=== PATIENT | female | born 1955 | race Caucasian/White ===

== ENCOUNTER 2018-04-14 11:05 | Emergency (ER) | payer BC, SELFPAY ==
--- NOTE | 2018-04-14 11:05 | DT_ITS ---
This patient was seen during an EMR downtime April 08, 2018 - April 15, 2018. This patient may have a combination of paper and electronic documentation or all paper documentation. All documentation is viewable within the e-chart portion of [facility] for each patient visit.
--- NOTE | 2018-04-14 12:40 | EKG12_ITS ---
Test Reason : CP Blood Pressure : / mmHG Vent. Rate : 065 BPM Atrial Rate : 065 BPM P-R Int : 156 ms QRS Dur : 094 ms QT Int : 440 ms P-R-T Axes : 000 046 074 degrees QTc Int : 457 ms Normal sinus rhythm Nonspecific ST abnormality Abnormal ECG Confirmed by RAFAEL POWERS, JESSICA ([id number]), editor greeting card MORRO MAY ([id number]) on 04/17/2018 5:44:08 PM Referred By: Jose Teixeira Confirmed By:JESSICA HALL MD
--- NOTE | 2018-04-14 14:05 | CT_ITS ---
STUDY: CT CERVICAL SPINE WITHOUT CONTRAST REASON FOR EXAM: Female, 62 years old. Dizziness and vomiting. Trauma to the back of the head RADIATION DOSAGE (If Supplied By Facility): CTDIvol = ( 18.32 ) mGy, DLP = ( 396.97 ) mGycm TECHNIQUE: High resolution transaxial imaging was performed without contrast material. Sagittal and coronal images were reconstructed. Individualized dose optimization techniques were used for this CT. COMPARISON: None FINDINGS: Straightening of normal cervical lordosis. Craniocervical junction appears unremarkable. Disc space narrowing with endplate degenerative changes at C5-C6 and C6-C7 levels. Anterior and posterior osteophytic spurring. Degenerative disc disease at C5-C6 and C6-C7 levels with bilateral neural foraminal narrowing and likely mild central canal stenosis. No prevertebral soft tissue swelling or mass. Multilevel facet arthrosis. The facets however appear aligned. The dens appears intact. The occipital condyles are within normal limits. Uncovertebral joint degenerative changes. Heterogeneous appearance of the thyroid gland. No apical pneumothorax. IMPRESSION: No definite evidence for acute cervical spine fractures. Cervical spondylotic changes predominating at C5-C6 and C6-C7 levels. Electronically Signed: Napoleon Zapien, at 15:16 EDT Tel , Service support , CT/Spine Cervical without Contras
--- NOTE | 2018-04-14 14:05 | CT_ITS ---
STUDY: CT BRAIN WITHOUT CONTRAST REASON FOR EXAM: Female, 62 years old. Dizziness and vomiting. Trauma to the back of the head RADIATION DOSAGE (If Supplied By Facility): CTDIvol = ( 44.99 ) mGy, DLP = ( 728.62 ) mGycm TECHNIQUE: Transaxial CT imaging of the brain was performed without administration of intravenous contrast material. Individualized dose optimization techniques were used for this CT. COMPARISON: None. FINDINGS: No evidence for shift of midline structures, mass effect or compression of the ventricles noted. No acute intra-articular extra-axial hemorrhage is seen. No abnormal intracranial fluid collections identified. The basal cisterns are patent. Posterior fossa structures demonstrate no discrete mass. Low-attenuation area in the periventricular region of the left frontal horn noted likely related with chronic small vessel disease. There is likely a chronic infarct of the body of the left caudate nucleus. Mucoperiosteal thickening of the maxillary sinuses as well as the ethmoid vessels. Somewhat ectatic appearance of the basilar tip noted. IMPRESSION: No evidence for acute intracranial hemorrhage, mass effect or acute large territory infarcts. Chronic left basal ganglia lacunar infarct. Electronically Signed: Napoleon Zapien, at 15:11 EDT Tel , Service support , CT/Brain/Head without Contrast
--- NOTE | 2018-04-14 14:30 | RAD_ITS ---
STUDY: X-RAY CHEST REASON FOR EXAM: Female, 62 years old. Dizziness and chest pain TECHNIQUE: PA and lateral views of the chest. COMPARISON: None. FINDINGS: The lungs are clear and expanded. There is no demonstrated pleural abnormality. Normal size heart. Normal mediastinum and celeste. Normal visualized pulmonary arteries. Normal visualized aortic arch and descending thoracic aorta. Normal visualized thoracic spine. Normal visualized ribs, clavicles, and shoulders. There is no demonstrated abnormality of the visualized soft tissue structures of the upper abdomen. RAD/Chest PA and Lateral IMPRESSION: Normal x-ray examination of the chest. Electronically Signed: Fidel Olsen DO at 14:55 EDT Tel , Service support ,
[2018-04-16 08:50] LABS: AST(SGOT) 18 U/L (15-37); Alanine Aminotransfer ALT/SGPT 15 U/L (13-56); Albumin, Serum 3.6 g/dL (3.2-5.0); Alkaline Phosphatase 80 U/L (45-117); Anion Gap 11 (5-15); BUN 11 mg/dL (7-18); BUN/Creat Ratio 14.5 RATIO (10-20); Calcium,Total 9.4 mg/dL (8.5-10.1); Chloride 90 mmol/L (98-107); Creatinine, Serum 0.76 mg/dL (0.55-1.02); EST Glomerular Filtration Rate 82 mL/min (>60); Est Glom Filt Rate - Afr Amer 99 mL/min (>60); Globulin 3.7 g/dL (2.2-4.2); Glucose 113 mg/dL (74-106); Lipase 152 U/L (73-393); Potassium 3.5 mmol/L (3.5-5.1); Protein, Total 7.3 g/dL (6.4-8.2); Sodium Level 129 mmol/L (136-145)
[2018-04-16 11:29] LABS: Absolute Lymphocyte Count 0.75 X10^3/ul (0.83-4.51); Basophil% 0.2 % (0-1); Eosinophils% 0.4 % (0-5); Hematocrit 39.7 % (37-47); Hemoglobin 14.1 g/dl (12.0-15.0); Lymphocyte # 0.75 X10^3/ul (4.0); Lymphocyte % 14.4 % (19-41); Mean Corp Hgb Conc 35.5 g/gl (32-36); Mean Corpuscular Hgb 29.1 pg (27.0-32.0); Neutrophil # 3.96 X10^3/uL (2.7-7.7); Neutrophil % 75.8 % (47-70); POSITIVE COUNT NO; POSITIVE DIFFERENTIAL NO; POSITIVE MORPHOLOGY NO; Platelet Count 185 K/mm3 (150-450); RBC Distribution Width CV 11.8 % (11.6-14.6); RBC Distribution Width SD 35.4 fl (35.1-43.9); Red Blood Count 4.84 M/mm3 (4.2-5.4); White Blood Count 5.2 K/mm3 (4.4-11.0)
[2018-04-16 11:30] LABS: Basophil# 0.01 X10^3/uL; Eosinophil# 0.02 X10^3/uL; Monocyte# 0.47 X10^3/uL
[2018-04-16 12:07] LABS: Mucous, Urine 0 SEEN /hpf (<or=2+); Red Blood Cells-Urine 0 SEEN /hpf (0-5); Squamous Epithelial Cells - UA 0 SEEN /hpf (5-10); White Blood Cells 0 SEEN /hpf (0-5)
[2018-04-16 13:16] LABS: Amorphous Sediment 1+; Bacteria RARE /hpf (None Seen); Color, Urine Yellow (Yellow); Glucose, Dipstick NEGATIVE (Normal); Ketone-Dipstick Negative (Negative); Leukocyte Esterase-Dipstick Negative /ul (Negative); Nitrite-Dipstick Negative (Negative); Occult Blood-Urine Negative /ul (Negative); Protein-Dipstick Negative (Negative); Specific Gravity, Urine 1.015 (1.002-1.030); Urine Bilirubin Dipstick Negative (Negative); Urine Clarity Sl Cldy (Clear); Urine Urobilinogen Normal (Normal)
== END 2018-04-14 14:30 | disposition home or self-care (01) ==
LOC: ED 22:20
PROVIDERS: Emergency Provider Emergency Medicine; Family Provider Student in an Organized Health Care Education/Training Program; PCP Student in an Organized Health Care Education/Training Program
DX: F07.81 Postconcussional syndrome (principal); F32.9 Major depressive disorder, single episode, unspecified; F41.9 Anxiety disorder, unspecified; I10 Essential (primary) hypertension; E78.00 Pure hypercholesterolemia, unspecified; Z79.899 Other long term (current) drug therapy; Z78.0 Asymptomatic menopausal state; Z87.891 Personal history of nicotine dependence
CPT/HCPCS: 36415; 70450; 71046; 72125; 80053; 81001; 83690; 85025; 93005; 99284; A4216

== ENCOUNTER 2018-05-03 13:00 | Outpatient (RCR) | payer BC, SELFPAY ==
--- NOTE | 2018-04-23 13:54 | HP.PTEVAL_ITS ---
Patient's Visit Information KATE BERGERON is a 62 year old F referred to Physical Therapy by Yenny Martines NP with a diagnosis of dizziness. Date of Evaluation: 04/23/18 Physical Therapist: Hortencia Pérez - Visit Plan Frequency: 1-2x /Week Duration: 3 Weeks Plan: 1-2X/ week as needed to re-check L Hallpike for positional vertigo and reposition if need be. Check balance and VOR if feeling of unsteadiness continues with HEP - Subjective Subjective: Pt has been having dizziness starting 4 weeks ago. She fell from standing on a shlef to get Diet Pepsiand then 2 weeks later she started with dizziness and nausea and throwing up. Went to ER and said vertigo and then saw Dr for follow up with high BP and changed meds. She then went to the ER again for anxiety and got valium. She feels week and unsteady. Last night when she rolled over she would get dizzy for less than 1 min (she is not sure but thinks she rolled to the R). The room did spin when that happened and that also occurs when bend fw or move quick. She in general feels off but the room spins and is less than 1 min when it happens. She finally saw her Dr and they sent her to PT. They did a Cat Scan in the hospital and she had echoand cardiogram done and they were all ok. She has ringing in her ears but has had that for a long time. - Objective -R Hallpike for nystagmus or dizziness to the R. + L Hallpike for nystagmus and dizziness that lasted approx 20 seconds...performed L Eply without any problems. Retested and + L Hallpike for about 8 seconds of nystagmus and dizziness and then performed L Eply again. Re-test L Hallpike again (3rd time) and was positiove for torsional nystagmus for less than 5 seconds and re did the L Eply again. Negative L Hallpike. Pt felt a little weird walking out but explained to just avoid looking down for the rest of the day and call with any questions - Goals Goal 1:: Abolish room spinning dizziness Goal Time Frame: 1 Week Goal 2:: Test VOR or balance if needed Goal Time Frame: 2-4 Weeks Goal 3:: I HEP if needed Goal Time Frame: 2-4 Weeks - Rehabilitation Potential Rehabilitation Potential: Good - Anticipated Interventions Patient/Client Instruction: Educate patient on: Condition, Plan of Care For the Purpose of:: To improve ability of physical actions for home/community/ work/leisure, To improve gait and locomotor functions, To improve balance Manual Therapy Techniques to Include: Other Comment: Eply For the Purpose of:: To decrease level of supervision to perform tasks, To improve gait and locomotor functions, To improve balance Thank you for the opportunity to evaluate your patient. For Medicare and Medicare HMO plans, please review the plan of care and approve it. It will need to be FAXED BACK to us at [phone] for Medicare purposes. Please let me know if there are questions or concerns regarding this plan of care. Physician Signature: Date:
--- NOTE | 2018-07-17 17:17 | HP.PTDCNRP_ITS ---
HP - Discharge Summary (1) - Patient Information KATE BERGERON was seen in my office for initial evaluation on 04/23/18. The following Plan of Care was established for this patient: Initial Frequency: 1-2x /Week Initial Duration: 3 Weeks - Anticipated Interventions Patient/Client Instruction: Educate patient on: Condition, Plan of Care For the Purpose of:: To improve ability of physical actions for home/community/ work/leisure, To improve gait and locomotor functions, To improve balance Manual Therapy Techniques to Include: Other Comment: Eply For the Purpose of:: To decrease level of supervision to perform tasks, To improve gait and locomotor functions, To improve balance This patient was last seen in our office 05/03/18. Pertinent comments regarding their Physical therapy will appear below: DC PT. Pt did not reschedule At this point I will be discontinuing this patient from physical therapy. I would be happy to see this patient again in the future if found appropriate by the physician. Thank you! Hortencia Pérez
== END 2018-05-03 19:00 | disposition home or self-care (01) ==
LOC: PT 13:00
PROVIDERS: Family Provider Student in an Organized Health Care Education/Training Program; PCP Student in an Organized Health Care Education/Training Program; Visit Provider Nurse Practitioner Adult Health
DX: R42 Dizziness and giddiness (principal)
CPT/HCPCS: 97161; 97530

== ENCOUNTER → 2018-05-23 10:41 | Outpatient (CLI) | payer BC, SELFPAY | LOC: PSN 10:42 | PROVIDERS: Family Provider Student in an Organized Health Care Education/Training Program; PCP Student in an Organized Health Care Education/Training Program; Visit Provider Nurse Practitioner Adult Health | DX: R42 Dizziness and giddiness (principal) | CPT/HCPCS: 93225; 93226 ==

== ENCOUNTER 2022-04-05 11:32 | Emergency (ER) | payer MEDICARE, SELFPAY ==
[2022-04-05 11:36] VITALS: BP 199/84; PULSE 67; RESP 17; TEMP 37.1; O2SAT 100; BMI 25.0
[2022-04-05 11:42] VITALS: O2SAT 100
--- NOTE | 2022-04-05 12:17 | EDS_ITS ---
HPI History of Present Illness Chief Complaint: Shortness of Breath Informant: patient Onset/Context/Timing Onset: Month(s) Context: Gradual Onset Timing: Intermittent Quality: Dull, aching Location: Left parasternal area Worsened by: Deep breathing Relieved by: Nothing Narrative Narrative: Patient presents with right leg pain and left chest pain. Patient states she was diagnosed with pneumonia approximately 1 month ago. Patient states she started to feel better after that. Patient states that today she was sent for evaluation of right leg pain. Patient had outpatient venous duplex which was positive for DVT in her right lower extremity. Patient states she was then told to come to the emergency department for CT scan of her chest to make sure she does not have a pulmonary embolism. Patient describes her pain as dull and aching. Patient states it is over the left parasternal area. Patient states it is worse with deep breathing. PFSH PFSH Medical History (Updated 04/05/22 @ 15:[address] Chris Philippe DO) High cholesterol HTN (hypertension) Home Medications albuterol sulfate 2 puff INHALATION PRN PRN 04/05/22 [History Last Taken Unknown] apixaban [Eliquis] 5 mg PO BID #74 tab 04/05/22 [Rx Last Taken Unknown] cetirizine 10 mg PO DAILY 04/05/22 [History Last Taken Unknown] cholecalciferol (vitamin D3) 1,250 mcg PO QWEEK 04/05/22 [History Last Taken Unknown] diclofenac sodium 75 mg PO DAILY 04/05/22 [History Last Taken Unknown] metoprolol tartrate 50 mg PO BID 04/05/22 [History Last Taken Unknown] simvastatin 10 mg PO QHS 04/05/22 [History Last Taken Unknown] Allergy/AdvReac Type Severity Reaction Status Date / Time latex Allergy Hives Verified 04/05/22 11:35 lisinopril [From Prinivil] AdvReac Other Verified 04/05/22 11:35 Surgical History (Updated 04/05/22 @ 12:[address] Chris Philippe DO) Hx of cholecystectomy Social History Smoking Status: Former smoker ROS ROS ED Constitutional Constitutional ED: Denies chills or fever(s) Eyes Eyes: Denies blurry vision or change in vision ENT ENT ED: Reports rhinorrhea; Denies sore throat Cardiovascular Cardiovascular: Reports chest pain; Denies palpitations Respiratory/Chest Respiratory/Chest: Reports cough and dyspnea Gastrointestinal Gastrointestinal: Denies nausea or vomiting Genitourinary Genitourinary ED: Denies dysuria or hematuria Musculoskeletal Musculoskeletal: Reports back pain; Denies neck pain Integumentary Denies abscess or rash Neurologic Neurologic: Denies headache(s) or weakness Allergic/Immunologic Allergic/Immunologic ED: Denies mouth swelling or urticaria EXAM Physical Exam Const Vital Signs: 04/05/22 11:36 04/05/22 11:42 04/05/22 13:34 Temperature 98.7 F Temperature Source Temporal Pulse Rate 67 63 Respiratory Rate 17 18 Respiratory Effort Short of Breath Labored Respiratory Pattern Normal Blood Pressure 199/84 H 147/101 H Blood Pressure Mean 122 116 Pulse Ox 100 99 Oxygen Delivery Method Room Air Room Air Room Air 04/05/22 15:45 Temperature Temperature Source Pulse Rate Respiratory Rate 17 Respiratory Effort Respiratory Pattern Blood Pressure Blood Pressure Mean Pulse Ox 97 Oxygen Delivery Method Positive well nourished and well developed General Appearance ED: well developed and NAD HEENT Reports moist mucous membranes Neck supple and no JVD Chest Wall Chest Narrative: There is mild reproducible tenderness over the left parasternal area along the fifth rib area Resp normal respiratory effort and clear to auscultation bilaterally Cardio regular rate, regular rhythm and no murmurs GI normal to inspection, nondistended, normoactive bowel sounds and non-tender Palpation: soft Extremity normal to inspection General Extremety ED: Negative for edema or tenderness General Extremity: Negative for edema Neuro oriented x3, CN's II-XII intact bilaterally and no sensory deficits noted Sensorium / Orientation: alert Motor Exam: strength 5/5 throughout Psych mental status grossly normal Skin no rashes or lesions noted MDM MDM MDM Narrative Medical decision making narrative: CBC was obtained and was essentially within normal limits. Comprehensive metabolic profile was normal. High-sensitivity troponin was normal. CTA of the chest was obtained. There is a large intraluminal thrombus in the distal portion of the left main pulmonary artery with extension into the left interlobar pulmonary artery. This was interpreted by the radiologist and reviewed by myself. Patient was given a dose of Eliquis here. Patient was given a prescription for Eliquis. Patient's vital signs remained stable during her emergency department stay. Patient was instructed to follow-up with her primary care physician in 5 to 7 days for further evaluation. Patient understood and was agreeable with the plan. All questions were answered. Lab Data Attestation: I reviewed the patient's lab results. Labs: Laboratory Results - last 24 hr 04/05/22 04/05/22 12:00 12:00 WBC 4.0 L RBC 4.33 Hgb 12.0 Hct 38.5 MCV 88.9 MCH 27.7 MCHC 31.2 L RDW Std Deviation 43.4 RDW Coeff of Danisha 13.2 Plt Count 193 MPV 10.5 Immature Gran % (Auto) 0.500 Neut % (Auto) 46.9 L Lymph % (Auto) 34.3 [place] % (Auto) 8.0 Eos % (Auto) 9.8 H Baso % (Auto) 0.5 Absolute Neuts (auto) 1.9 L Absolute Lymphs (auto) 1.37 Nucleated RBC % 0 Sodium 140 Potassium 4.0 Chloride 107 Carbon Dioxide 27.0 Anion Gap 6 BUN 16 Creatinine 0.61 Estim Creat Clear Calc 76.06 Est GFR (MDRD) Af Amer 126 Est GFR (MDRD) Non-Af 104 BUN/Creatinine Ratio 26.1 H Glucose 93 Calcium 9.3 Total Bilirubin 0.90 AST 19 ALT 18 Alkaline Phosphatase 80 Troponin I High Sens 7 Total Protein 7.3 Albumin 3.3 Globulin 4.0 Albumin/Globulin Ratio 0.8 L Radiography Diagnostic Testing: Clinical Impression(s) from Imaging Studies Chest CTA 04/05/22 12:21 IMPRESSION: Large intraluminal thrombus in the distal portion of left main pulmonary artery with extension into the left interlobar pulmonary artery. Left basilar infiltration and/or atelectasis. N.B. : The above Results were Read Back by Teo Hart MD to Chris Philippe DO, and understanding confirmed on 04/05/2022 13:37:36 (ET). Electronically Signed: Teo Hart MD at 13:38 EDT , ADDENDUM: 04/05/22 7518 IMPRESSION: Large intraluminal thrombus in the distal portion of left main pulmonary artery with extension into the left interlobar pulmonary artery. Left basilar infiltration and/or atelectasis. N.B. : The above Results were Read Back by Teo Hart MD to Chris Philippe DO, and understanding confirmed on 04/05/2022 13:37:36 (ET). Electronically Signed: Teo Hart MD at 13:38 EDT , Discharge Plan Triage Chief Complaint: Shortness of Breath ED Provider: Chris Philippe Dx/Rx/DC Orders Clinical Impression: Pulmonary embolism Instructions: Pulmonary Embolism Prescriptions: New Eliquis 5 MG tablet 5 mg PO BID Qty: 74 RF: 0 No Action cetirizine 10 mg tablet 10 mg PO DAILY RF: 0 simvastatin 10 mg tablet 10 mg PO QHS RF: 0 metoprolol tartrate 50 mg tablet 50 mg PO BID RF: 0 diclofenac sodium 75 mg tablet,delayed release (DR/EC) 75 mg PO DAILY RF: 0 cholecalciferol (vitamin D3) 1,250 mcg (50,000 unit) capsule 1,250 mcg PO QWEEK RF: 0 albuterol sulfate 90 mcg/actuation HFA aerosol inhaler 2 puff INHALATION PRN PRN (Reason: Shortness Of Breath Or Wheezing) RF: 0 Primary Care Provider: Bobby Christiansen Referrals: Bobby Christiansen DO [Primary Care Provider] - 3-5 Days Disposition Disposition: Home, Self Care Discharge Date/Time: 04/05/22 15:45
--- NOTE | 2022-04-05 12:21 | CT_ITS ---
STUDY: CTA CHEST REASON FOR EXAM: Female, 66 years old. Chest pain. Known DVT in the right lower extremity. RADIATION DOSAGE (If Supplied By Facility): CTDIvol = ( 10.02 ) mGy, DLP = ( 347.35 ) mGycm TECHNIQUE: The examination was performed with the intravenous administration of IV 100mL Isovue-370. Post-processing of the angiographic images was performed, with multiplanar reformation and 3D reconstruction. Individualized dose optimization techniques were used for this CT. COMPARISON: None. FINDINGS: Large intraluminal thrombus is seen in the distal portion of the left main pulmonary artery with extension into the left interlobar pulmonary artery. There is atherosclerotic calcification of the aortic arch with tortuosity. There is no demonstrated aortic dissection. There are calcifications of the coronary arteries. Normal mediastinum. Normal hilar regions. Normal visualized trachea and bronchi. The lungs are well expanded. Infiltration versus atelectasis in the left lower lobe. Normal chest wall structures. There are degenerative changes of thoracic spine. 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 Normal visualized upper abdomen. CT/CTA Chest W/WO Contrast IMPRESSION: Large intraluminal thrombus in the distal portion of left main pulmonary artery with extension into the left interlobar pulmonary artery. Left basilar infiltration and/or atelectasis. N.B. : The above Results were Read Back by Teo Hart MD to Chris Philippe DO, and understanding confirmed on 04/05/2022 13:37:36 (ET). Electronically Signed: Teo Hart MD at 13:38 EDT ,
[2022-04-05 12:37] LABS: Absolute Lymphocyte Count 1.37 X10^3/uL (0.83-4.51); Absolute Neutrophil Count 1.9 X10^3/uL (2.0-7.7); Basophil# 0.02 X10^3/uL; Basophil% 0.5 % (0-1); Eosinophil# 0.39 X10^3/uL; Eosinophils% 9.8 % (0-5); Hematocrit 38.5 % (37-47); Lymphocyte # 1.37 X10^3/ul (0.83-4.51); Lymphocyte % 34.3 % (19-41); Mean Corp Hgb Conc 31.2 g/dL (32-36); Mean Corpuscular Hgb 27.7 pg (27.0-32.0); Mean Corpuscular Volume 88.9 fL (81-99); Mean Platelet Vol. 10.5 fl (6.2-12.0); Monocyte# 0.32 X10^3/uL; NRBC Flagged by Analyzer 0 % (0-5); Neutrophil # 1.87 X10^3/uL (2.7-7.7); Neutrophil % 46.9 % (47-70); Platelet Count 193 K/mm3 (150-450); RBC Distribution Width CV 13.2 % (11.6-14.6); RBC Distribution Width SD 43.4 fl (35.1-43.9); Red Blood Count 4.33 M/mm3 (4.2-5.4)
[2022-04-05 12:53] LABS: ALB/GLOB Ratio 0.8 RATIO (0.9-2.4); AST(SGOT) 19 U/L (15-37); Alanine Aminotransfer ALT/SGPT 18 U/L (13-56); Albumin, Serum 3.3 g/dL (3.2-5.0); Alkaline Phosphatase 80 U/L (45-117); Anion Gap 6 (5-15); BUN 16 mg/dL (7-18); BUN/Creat Ratio 26.1 RATIO (10-20); Calcium,Total 9.3 mg/dL (8.5-10.1); Chloride 107 mmol/L (98-107); Creatinine, Serum 0.61 mg/dL (0.55-1.02); EST Glomerular Filtration Rate 104 mL/min (>60); Est Glom Filt Rate - Afr Amer 126 mL/min (>60); Estimated Creatinine Clearance 76.06 ml/min; Glucose 93 mg/dL (74-106); Protein, Total 7.3 g/dL (6.4-8.2); Sodium Level 140 mmol/L (136-145); Troponin-I HS 7 pg/mL (3.0-54.0)
[2022-04-05 13:34] VITALS: BP 147/101; PULSE 63; RESP 18; O2SAT 99
[2022-04-05] MEDS: APIXABAN 5 MG TABLET 10 MG PO (14:00)
[2022-04-05 15:45] VITALS: RESP 17; O2SAT 97
== END 2022-04-05 15:45 | disposition home or self-care (01) ==
PROVIDERS: Emergency Provider Emergency Medicine; PCP Student in an Organized Health Care Education/Training Program; Visit Provider Emergency Medicine
DX: I26.99 Other pulmonary embolism without acute cor pulmonale (principal); I10 Essential (primary) hypertension; E78.00 Pure hypercholesterolemia, unspecified; Z87.891 Personal history of nicotine dependence; Z79.01 Long term (current) use of anticoagulants; Z79.899 Other long term (current) drug therapy; Z86.718 Personal history of other venous thrombosis and embolism
CPT/HCPCS: 71275; 80053; 84484; 85025; 99285; Q9967; A4216